=== PATIENT | female | born 1970 | race Caucasian/White ===

== ENCOUNTER → 2020-02-13 | Outpatient (CLI) | payer BC ==
[2005-06-22 08:15] VITALS: TEMP 97
[~2020-02-13] MED LIST: NO HOME MEDICATIONS
== END ==
LOC: COL.RAD 13:22
DX: R42 Dizziness and giddiness (principal)

== ENCOUNTER → 2020-07-30 | Outpatient (CLI) | payer BC ==
[2005-06-22 08:15] VITALS: TEMP 97
== END ==
LOC: COL.CARD 06-19 10:00
DX: G43.109 Migraine with aura, not intractable, without status migrainosus (principal); R26.89 Other abnormalities of gait and mobility; H53.9 Unspecified visual disturbance

== ENCOUNTER → 2021-03-21 | Outpatient (CLI) | payer BC ==
[2005-06-22 08:15] VITALS: TEMP 97
== END ==
LOC: MC.RAD 11:15
DX: Z12.31 Encounter for screening mammogram for malignant neoplasm of breast (principal)